=== PATIENT | male | born 1960 | race Caucasian/White ===

== ENCOUNTER → 2016-05-05 | Outpatient (CLI) | payer OTHER ==
--- NOTE | 2016-05-05 19:12 | MR ---
EXAMINATION TYPE: MR cervical spine wo con DATE OF EXAM: 05/05/2016 7:00 PM COMPARISON: NONE HISTORY: neck pain for 3 months, steroid injection 2 weeks ago TECHNIQUE: Multiplanar, multisequence images of the cervical spine were acquired. C2-C3: No evidence for degenerative disc disease. No disc bulge/herniation or protrusion. No Canal stenosis. Facet arthropathy noted. Uncovertebral joint hypertrophy greater on the left seen. Mild l eft foraminal encroachment. C3-C4: Severe degenerative disc disease with broad-based disc protrusion capped by spur greater parac entrally to the left. There is compression of the spinal cord and severe canal stenosis. Findings sli ghtly greater paracentrally the left. Uncovertebral joint hypertrophy and facet arthropathy contribut e to significant bilateral foraminal encroachment. C4-C5: Small central disc protrusion with moderate effacement of thecal sac. Encroaches upon the ante rior margin the spinal cord. There is facet arthropathy and uncovertebral joint hypertrophy bilateral ly with bilateral mild foraminal encroachment. C5-C6: Severe degenerative disc disease. Uncovertebral joint hypertrophy and facet arthropathy contri bute to mild to moderate bilateral foraminal encroachment. C6-C7: A mild broad-based central disc bulging but no canal stenosis or focal herniation. Neural fora barrie patent. C7-T1: No evidence for degenerative disc disease. No disc bulge/herniation or protrusion. No Canal stenosis. Foramina are patent bilaterally. Cervical segments are intact. There is loss the normal cervical lordosis. There is abnormal signal w ithin the visualized cervical spinal cord with the most marked changes seen at levels C3-C4. Cranioce rvical junction maintained. IMPRESSION: 1. Broad-based disc bulging or protrusion greater paracentrally the left C3-C4 results in severe connie l stenosis and spinal cord compression. Bilateral foraminal encroachment seen. 2. Assessment spinal cord is limited due to artifact. There does appear to be abnormal signal at the C3-C4 level suggestive of myelomalacia or compressive myelitis. Small syrinx felt less likely. 3. Small central disc protrusion C4-C5 with moderate effacement of thecal sac. No spinal cord contact . Neural foramina are narrowed secondary to facet arthropathy and uncovertebral joint hypertrophy. 4. Moderate degenerative disc disease C3-C4 and C5-C6. Hypertrophic changes and disc bulging at C5-C6 result in moderate bilateral foraminal encroachment and mild effacement of thecal sac with no canal stenosis or focal herniation.
== END | disposition home or self-care (01) ==
LOC: RADMRIMAIN 18:35
PROVIDERS: ATTEND Psychiatry & Neurology Neurology
DX: M48.02 Spinal stenosis, cervical region (principal); M50.21 Other cervical disc displacement, high cervical region; M50.221 Other cervical disc displacement at C4-C5 level; M50.31 Other cervical disc degeneration, high cervical region; M50.322 Other cervical disc degeneration at C5-C6 level
CPT/HCPCS: 72141

== ENCOUNTER → 2016-06-01 | Outpatient (CLI) | payer OTHER ==
[2016-06-01 14:01] LABS: EKG EKG PERFORMED
[2016-06-01 14:27] LABS: Appearance,Urine Clear (Clear); Bilirubin,Urine Negative (Negative); Glucose,Urine (UA) 4+ (Negative); Ketones,Urine Negative (Negative); Leukocyte Esterase,Urine Negative (Negative); Nitrite,Urine Negative (Negative); Protein,Urine Negative (Negative); Specific Gravity,Urine 1.017 (1.001-1.035); UA Billing (MACRO vs. MICRO) CHEM; Urobilinogen,Urine <2.0 mg/dL (<2.0)
[2016-06-01 14:28] LABS: Basophils # (A) 0.1 k/uL (0-0.2); Basophils % (A) 1 %; CH 29.3; CHCM 32.9; Eosinophils # (A) 0.2 k/uL (0-0.7); Eosinophils % (A) 2 %; HCT 47.7 % (39.0-53.0); HGB 15.3 gm/dL (13.0-17.5); Luc # (Auto) 0.18; Luc % (Auto) 3; Lymphocytes # (A) 2.2 k/uL (1.0-4.8); Lymphocytes % (A) 31 %; MCH 28.7 pg (25.0-35.0); MCHC 32.2 g/dL (31.0-37.0); MCV 89.4 fL (80.0-100.0); Mean Platelet Volume 7.4; Monocytes # (A) 0.4 k/uL (0-1.0); Monocytes % (A) 6 %; Neutrophils # (A) 4.3 k/uL (1.3-7.7); Neutrophils % (A) 58 %; RBC 5.34 m/uL (4.30-5.90); RDW 13.3 % (11.5-15.5); WBC 7.3 k/uL (3.8-10.6); WBC (Perox) 7.25
[2016-06-01 14:41] LABS: Anion Gap 12 mmol/L; Blood Urea Nitrogen 23 mg/dL (9-20); Calcium 9.5 mg/dL (8.4-10.2); Carbon Dioxide 23 mmol/L (22-30); Chloride 103 mmol/L (98-107); Glucose 324 mg/dL (74-99); Non-African American GFR(MDRD) >60 (>60 ml/min/1.73 sqM); Potassium 5.5 mmol/L (3.5-5.1); Sodium 138 mmol/L (137-145)
[2016-06-01 14:42] LABS: Partial Thromboplastin Time 22.2 sec (22.0-30.0); Prothrombin Time 10.3 sec (9.0-12.0)
--- NOTE | 2016-06-01 14:43 | XR ---
EXAMINATION TYPE: XR chest 2V DATE OF EXAM: 06/01/2016 2:33 PM COMPARISON: 03/12/2015 HISTORY: Preop FINDINGS: The lungs are clear and there is no pneumothorax, pleural effusion, or focal pneumonia. Mild cardio megaly and postsurgical changes. Arthropathy of the shoulders. Mild hypertrophic change of the spine. IMPRESSION: 1. No acute process.
[2016-06-01 21:09] LABS: Hemoglobin A1C 10.4 % (4.2-6.1)
== END | disposition home or self-care (01) ==
LOC: LABWHC1 13:39
PROVIDERS: ATTEND Nurse Practitioner Family
DX: Z01.818 Encounter for other preprocedural examination (principal); M47.12 Other spondylosis with myelopathy, cervical region
CPT/HCPCS: 36415; 71020; 80048; 81003; 83036; 85025; 85610; 85730; 93005

== ENCOUNTER → 2017-01-08 | Outpatient (CLI) | payer OTHER ==
--- NOTE | 2017-01-08 16:01 | CT ---
EXAMINATION TYPE: CT cervical spine wo con DATE OF EXAM: 01/08/2017 COMPARISON: NONE HISTORY: Follow up cervical fusion CT DLP: 770.4 mGycm Automated exposure control for dose reduction was used. TECHNIQUE: CT scan of the cervical spine is obtained without contrast, axial images are obtained, sagittal and c oronal reformatted images are also reviewed. FINDINGS: Patient shows anterior cervical fusion and discectomy change at C3-C6. Intervertebral spacing materia l present. Spondylosis is present, posterior extension of endplates at C3-4 and C5-6 causing anterior mass effect on the thecal sac. C2-3 shows left-sided foraminal encroachment, no significant central stenosis. No disc herniation. C3-4 which is anterior mass effect on the thecal sac due to posterior extension of endplate disc comp blaze. On mild central stenosis is suspected. There is some mild bilateral foraminal encroachment due t o lateral extension endplate disc complex. C4-5: No significant foraminal encroachment on the right, minimal encroachment on the left. No signif icant central stenosis. C5-6: Foraminal encroachment is present bilaterally. Mild central stenosis due to posterior extension of endplate disc complex. C6-7: Within normal limits C7-T1: No significant abnormality Cervical vertebral bodies show preserved height and alignment. IMPRESSION: Degenerative disc disease, multilevel foraminal encroachment. Postop changes.
== END ==
LOC: RADCTMAIN 15:27
PROVIDERS: ATTEND Neurological Surgery
DX: M99.71 Connective tissue and disc stenosis of intervertebral foramina of cervical region (principal); M50.30 Other cervical disc degeneration, unspecified cervical region; Z98.890 Other specified postprocedural states
CPT/HCPCS: 72125

== ENCOUNTER → 2021-02-10 | Day surgery (SDC) | payer OTHER ==
[2021-02-08 15:57] VITALS: BMI 37.2
[~2021-02-10] MED LIST: LACTATED RINGERS 1,000 ML IV ONE; LACTATED RINGERS 1,000 ML IV SCH; PROPOFOL 10 MG/ML 20 ML VIAL IV ONE
[2021-02-10 07:20] VITALS: TEMP 98
[2021-02-10 08:24] VITALS: RESP 16
[2021-02-10 08:36] VITALS: BP 103/65; PULSE 64
--- NOTE | 2021-02-10 08:40 | P.GSHP ---
History of Present Illness H&P Date: 02/10/21 Chief Complaint: Constipation Is a 60-year-old male who presents today for colonoscopy constipation. Past Medical History Past Medical History: Heart Failure, Diabetes Mellitus, Hyperlipidemia, Hypertension, Myocardial Infarction ([place]), Osteoarthritis ([place]) Additional Past Medical History / Comment(s): covid June 2020 Last Myocardial Infarction Date:: 2004 History of Any Multi-Drug Resistant Organisms: None Reported Past Surgical History: Coronary Bypass/CABG, Heart Catheterization With Stent Additional Past Surgical History / Comment(s): BILATERAL CATARACTS WITH LENS IMPLANTS,CABG 3 vessel,,traumatic partial amputation repair Past Anesthesia/Blood Transfusion Reactions: No Reported Reaction Date of Last Stent Placement:: 2004 Smoking Status: Former smoker - Past Family History Mother Family Medical History: Cancer Additional Family Medical History / Comment(s): liver or kidney Father Family Medical History: Cancer Additional Family Medical History / Comment(s): lung Medications and Allergies Home Medications Medication Instructions Recorded Confirmed Type Aspirin 81 mg PO DAILY 06/08/14 02/08/21 History glipiZIDE [Glucotrol] 5 mg PO HS 06/08/14 02/08/21 History Fenofibrate [Tricor] 160 mg PO HS 03/12/15 02/08/21 History Atorvastatin [Lipitor] 40 mg PO HS 02/08/21 02/08/21 History Baclofen [Lioresal] 20 mg PO HS 02/08/21 02/08/21 History Dapagliflozin Propanediol [Farxiga] 10 mg PO QAM 02/08/21 02/08/21 History Famotidine 20 mg PO HS 02/08/21 02/08/21 History Furosemide [Lasix] 20 mg PO HS 02/08/21 02/08/21 History Furosemide [Lasix] 40 mg PO QAM 02/08/21 02/08/21 History HYDROcodone/APAP 10-325MG [[place] 1 tab PO Q6HR PRN 02/08/21 02/08/21 History 10-325] Insulin Glargine,Hum.rec.anlog 10 - 50 unit SQ HS PRN 02/08/21 02/08/21 History [Basaglar Kwikpen U-100] Metoprolol Succinate (ER) [Toprol 25 mg PO QAM 02/08/21 02/08/21 History Xl] Nitroglycerin Sl Tabs [Nitrostat] 0.4 mg SUBLINGUAL Q5M PRN 02/08/21 02/08/21 History PARoxetine [Paxil] 20 mg PO QAM 02/08/21 02/08/21 History Pioglitazone HCl 45 mg PO QAM 02/08/21 02/08/21 History Sacubitril/Valsartan [Entresto 49 1 each PO BID 02/08/21 02/08/21 History mg-51 mg Tablet] Spironolactone 50 mg PO QAM 02/08/21 02/08/21 History Tamsulosin HCl [Flomax] 0.4 mg PO BID 02/08/21 02/08/21 History metFORMIN HCL [Glucophage] 1,000 mg PO BID 02/08/21 02/08/21 History Allergies Allergy/AdvReac Type Severity Reaction Status Date / Time No Known Allergies Allergy Verified 02/08/21 15:39 Surgical - Exam Vital Signs Temp Pulse Resp BP Pulse Ox 98 F 88 18 142/85 98 02/10/21 07:19 02/10/21 07:19 02/10/21 07:19 02/10/21 07:19 02/10/21 07:19 - General well developed, well nourished, no distress - Eyes PERRL - ENT normal pinna - Neck no masses - Respiratory normal expansion - Cardiovascular Rhythm: regular - Abdomen Abdomen: soft, non tender Assessment and Plan Assessment: Constipation. We'll perform colonoscopy.
--- NOTE | 2021-02-10 08:41 | P.OP ---
Date of Procedure: 02/10/21 Preoperative Diagnosis: Constipation Postoperative Diagnosis: External hemorrhoids Procedure(s) Performed: Colonoscopy Anesthesia: MAC Surgeon: Dell Bray Pathology: none sent Condition: stable Disposition: PACU Description of Procedure: The patient's placed on the endoscopy table in the lateral position. He received IV sedation. Digital rectal exam was performed which revealed external hemorrhoids. The flexible colonoscope was then placed patient anus passed throughout the entire colon. Ileocecal valve visualized. The cecum, ascending and transverse colon appeared normal. The descending; appeared normal. Scope was brought back the rectum and this appeared normal. Scope withdrawn for patient.
== END | disposition home or self-care (01) ==
LOC: ORWHC2ENDO 06:49
PROVIDERS: ATTEND Surgery
DX: K64.4 Residual hemorrhoidal skin tags (principal); K59.00 Constipation, unspecified; I11.0 Hypertensive heart disease with heart failure; I50.9 Heart failure, unspecified; E11.9 Type 2 diabetes mellitus without complications; E78.5 Hyperlipidemia, unspecified; M19.90 Unspecified osteoarthritis, unspecified site; I25.2 Old myocardial infarction; Z95.5 Presence of coronary angioplasty implant and graft; Z95.1 Presence of aortocoronary bypass graft; Z98.42 Cataract extraction status, left eye; Z98.41 Cataract extraction status, right eye; Z96.1 Presence of intraocular lens; Z98.890 Other specified postprocedural states; Z87.891 Personal history of nicotine dependence; Z80.51 Family history of malignant neoplasm of kidney; Z80.0 Family history of malignant neoplasm of digestive organs; Z80.1 Family history of malignant neoplasm of trachea, bronchus and lung; Z79.84 Long term (current) use of oral hypoglycemic drugs; Z79.82 Long term (current) use of aspirin; Z79.899 Other long term (current) drug therapy
CPT/HCPCS: 45378; J2704

== ENCOUNTER 2022-09-13 11:59 | Emergency (ER) | payer OTHER ==
[2022-09-13 12:10] VITALS: TEMP 97.4
--- NOTE | 2022-09-13 13:40 | ED ---
SOB HPI - General Source: patient, RN notes reviewed Mode of arrival: ambulatory Limitations: no limitations <Jeffrey Jefferson - Last Filed: 09/13/22 13:39> - History of Present Illness MD Complaint: shortness of breath (Exertional) -: days(s) Severity scale (1-10): 0 Consistency: intermittent Improves With: nothing Worsens With: exertion Known History Of: congestive heart failure Associated Symptoms: denies other symptoms Treatments Prior to Arrival: none - Related Data Home Oxygen Therapy: No <Michele Lester - Last Filed: 09/18/22 06:07> - General Chief Complaint: Shortness of Breath Stated Complaint: sob Time Seen by Provider: 09/13/22 13:39 - History of Present Illness Initial Comments: 61-year-old male presents emergency Department with chief complaint of shortness breath. Patient's been having increasing shortness but the last 2 days. Patient has had extensive cardiac history, CHF. He states he took an extra Lasix last night. Denies any leg swelling. Denies any cold-like symptoms. Does have slight cough which is more chronic (Jeffrey Jefferson) This patient is 61-year-old man who states that his real complaint is that over the past few days he notes that when he walks up a hill caring his fishing equipment he feels short of breath at the top. The patient has history of CAD/CHF and was concerned he may be going into congestive heart failure. He has not noticed orthopnea or edema. No cough or sputum. No chest pain. No change in urination. The patient's 1 further questioned does state that he has been more sedentary over the winter than his usual. The patient states she is pretty good about following with cardiology and did have a stress test maybe about a year ago. He did have echocardiogram he believes maybe about 6 months ago. (Michele Lester) - Related Data Home Medications Medication Instructions Recorded Confirmed Aspirin 81 mg PO DAILY 06/08/14 02/08/21 glipiZIDE [Glucotrol] 5 mg PO HS 06/08/14 02/08/21 Fenofibrate [Tricor] 160 mg PO HS 03/12/15 02/08/21 Atorvastatin [Lipitor] 40 mg PO HS 02/08/21 02/08/21 Baclofen [Lioresal] 20 mg PO HS 02/08/21 02/08/21 Dapagliflozin Propanediol [Farxiga] 10 mg PO QAM 02/08/21 02/08/21 Famotidine 20 mg PO HS 02/08/21 02/08/21 Furosemide [Lasix] 20 mg PO HS 02/08/21 02/08/21 Furosemide [Lasix] 40 mg PO QAM 02/08/21 02/08/21 HYDROcodone/APAP 10-325MG [[place] 1 tab PO Q6HR PRN 02/08/21 02/08/21 10-325] Insulin Glargine,Hum.rec.anlog 10 - 50 unit SQ HS PRN 02/08/21 02/08/21 [Basaglar Kwikpen U-100] Metoprolol Succinate (ER) [Toprol 25 mg PO QAM 02/08/21 02/08/21 Xl] Nitroglycerin Sl Tabs [Nitrostat] 0.4 mg SUBLINGUAL Q5M PRN 02/08/21 02/08/21 PARoxetine [Paxil] 20 mg PO QAM 02/08/21 02/08/21 Pioglitazone HCl 45 mg PO QAM 02/08/21 02/08/21 Sacubitril/Valsartan [Entresto 49 1 each PO BID 02/08/21 02/08/21 mg-51 mg Tablet] Spironolactone 50 mg PO QAM 02/08/21 02/08/21 Tamsulosin HCl [Flomax] 0.4 mg PO BID 02/08/21 02/08/21 metFORMIN HCL [Glucophage] 1,000 mg PO BID 02/08/21 02/08/21 Allergies Allergy/AdvReac Type Severity Reaction Status Date / Time No Known Allergies Allergy Verified 09/13/22 12:10 Review of Systems ROS Other: All systems not noted in ROS Statement are negative. <Jeffrey Jefferson - Last Filed: 09/13/22 13:39> ROS Other: All systems not noted in ROS Statement are negative. Constitutional: Denies: fever, chills Respiratory: Denies: cough, dyspnea, wheezes Cardiovascular: Reports: dyspnea on exertion. Denies: chest pain, palpitations, orthopnea, edema Gastrointestinal: Denies: abdominal pain, vomiting, diarrhea, melena, hematochezia Genitourinary: Denies: dysuria, hematuria Musculoskeletal: Denies: back pain Skin: Denies: rash Neurological: Denies: headache, weakness <Michele Lester - Last Filed: 09/18/22 06:07> ROS Statement: Those systems with pertinent positive or pertinent negative responses have been documented in the HPI. Past Medical History Past Medical History: Heart Failure, Diabetes Mellitus, Hyperlipidemia, Hypertension, Myocardial Infarction ([place]), Osteoarthritis ([place]) Additional Past Medical History / Comment(s): covid June 2020 Last Myocardial Infarction Date:: 2004 History of Any Multi-Drug Resistant Organisms: None Reported Past Surgical History: Coronary Bypass/CABG, Heart Catheterization With Stent Additional Past Surgical History / Comment(s): BILATERAL CATARACTS WITH LENS IMPLANTS,CABG 3 vessel,,traumatic partial amputation repair Past Anesthesia/Blood Transfusion Reactions: No Reported Reaction Date of Last Stent Placement:: 2004 Past Psychological History: Panic Disorder Smoking Status: Former smoker Past Alcohol Use History: None Reported Past Drug Use History: None Reported - Past Family History Mother Family Medical History: Cancer Additional Family Medical History / Comment(s): liver or kidney Father Family Medical History: Cancer Additional Family Medical History / Comment(s): lung <Jeffrey Jefferson - Last Filed: 09/13/22 13:39> General Exam Limitations: no limitations <Jeffrey Jefferson - Last Filed: 09/13/22 13:39> Limitations: no limitations General appearance: alert, in no apparent distress Head exam: Present: atraumatic, normocephalic Eye exam: Present: normal appearance. Absent: scleral icterus, conjunctival injection Neck exam: Present: normal inspection Respiratory exam: Present: normal lung sounds bilaterally. Absent: respiratory distress, wheezes, rales, rhonchi, stridor, accessory muscle use, decreased breath sounds Cardiovascular Exam: Present: normal rhythm, bradycardia, normal heart sounds. Absent: systolic murmur, diastolic murmur, rubs, gallop GI/Abdominal exam: Present: soft. Absent: distended, tenderness, guarding, rebound, rigid, mass Extremities exam: Present: normal inspection, normal capillary refill. Absent: pedal edema, calf tenderness Back exam: Present: normal inspection Neurological exam: Present: alert Skin exam: Present: warm, dry, intact, normal color. Absent: rash <Michele Lester - Last Filed: 09/18/22 06:07> - General Exam Comments Initial Comments: Visual Physical Exam Vital signs reviewed General: Well-appearing, nontoxic, no acute distress. Head: Normocephalic, atraumatic Eyes: PERRLA, EOMI ENT: Airway patent Chest: Nonlabored breathing Skin: No visual rash, normal skin tone Neuro: Alert and oriented 3 Musculoskeletal: No gross abnormalities (Ronny,Jeffrey M) Course Vital Signs 09/13/22 09/13/22 12:07 18:06 Temperature 97.4 F L Pulse Rate 59 L 79 Respiratory 22 18 Rate Blood Pressure 107/67 120/85 O2 Sat by Pulse 95 97 Oximetry Medical Decision Making - Lab Data Result diagrams: 09/13/22 14:40 09/13/22 14:40 - EKG Data -: EKG Interpreted by Me EKG shows normal: sinus rhythm (With occasional PVC), axis (Normal), QRS complexes (Old inferior [place]) Rate: normal (Rate 87 bpm) <Michele Lester - Last Filed: 09/18/22 06:07> - Medical Decision Making Patient is 61-year-old man here for some exertional dyspnea. The patient is not having this acute chest pain, nor any exertional chest pain or dyspnea at rest. There is no orthopnea. When I entered the room he was lying flat comfortably. After more in depth discussion it does appear that this probably represents some deconditioning, but given the patient's cardiac history believe he should follow with cardiology to see about new stress test/echocardiogram. We discussed appropriate further care and follow-up as well as return parameters. The patient did have chest x-ray which I interpreted as showing no acute inf iltrate or pneumothorax. Was pt. sent in by a medical professional or institution (, PA, OTOLOGIST, urgent care, hospital, or [facility]...) When possible be specific @ -[No] Did you speak to anyone other than the patient for history (EMS, parent, family, police, friend...)? What history was obtained from this source @ -[No] Did you review nursing and triage notes (agree or disagree)? Why? @ -[I reviewed and agree with nursing and triage notes] Were old charts reviewed (outside hosp., previous admission, EMS record, old EKG, old radiological studies, urgent care reports/EKG's, [facility] records)? Report findings @ -[No old charts were reviewed] Differential Diagnosis (chest pain, altered mental status, abdominal pain women, abdominal pain men, vaginal bleeding, weakness, fever, dyspnea, syncope, headache, dizziness, GI bleed, back pain, seizure, CVA, palpatations, mental health, musculoskeletal)? @ -[Differential Dyspnea: Coronary syndrome, arrhythmia, tamponade, asthma, COPD, pulmonary embolism, pneumonia, pneumothorax, pulmonary effusion, anaphylaxis, diabetic ketoacidosis, flailed chest, pulmonary contusion, diaphragmatic rupture, anemia, neuromuscular, this is not meant to be an all-inclusive list. EKG interpreted by me (3pts min.). @ -[As above] X-rays interpreted by me (1pt min.). @ -[As above CT interpreted by me (1pt min.). @ -[None done] U/S interpreted by me (1pt. min.). @ -[None done] What testing was considered but not performed or refused? (CT, X-rays, U/S, labs)? Why? @ -[None] What meds were considered but not given or refused? Why? @ -[None] Did you discuss the management of the patient with other professionals (professionals i.e. , PA, OTOLOGIST, lab, RT, psych nurse, social service coordinator, vocational trainer, teacher, sewage reticulation drafting officer, case sealer)? Give summary @ -[No] Was smoking cessation discussed for >3mins.? @ -[No] Was critical care preformed (if so, how long)? @ -[No] Were there social determinants of health that impacted care today? How? (Homelessness, low income, unemployed, alcoholism, drug addiction, transportation, low edu. Level, literacy, decrease access to med. care, custodial, rehab)? @ -[No] Was there de-escalation of care discussed even if they declined (Discuss DNR or withdrawal of care, Hospice)? DNR status @ -[No] What co-morbidities impacted this encounter? (DM, HTN, Smoking, COPD, CAD, Cancer, CVA, ARF, Chemo, Hep., AIDS, mental health diagnosis, sleep apnea, morbid obesity)? @ -[None] Was patient admitted / discharged? Hospital course, mention meds given and route, prescriptions, significant lab abnormalities, going to OR and other pertinent info. @ -[We discussed admission to have cardiology consultation, but the patient would like to go home and follow up as outpatient Undiagnosed new problem with uncertain prognosis? @ -[No] Drug Therapy requiring intensive monitoring for toxicity (Heparin, Nitro, Insulin, Cardizem)? @ -[No] Were any procedures done? @ -[No] Diagnosis/symptom? @ -[Acute exertional dyspnea Acute, or Chronic, or Acute on Chronic? @ -[default] Uncomplicated (without systemic symptoms) or Complicated (systemic symptoms)? @ -[Uncomplicated Side effects of treatment? @ -[No] Exacerbation, Progression, or Severe Exacerbation? @ -[No] Poses a threat to life or bodily function? How? (Chest pain, [place], [place], pneumonia, PE, COPD, DKA, ARF, appy, cholecystitis, CVA, Diverticulitis, Homicidal, Suicidal, threat to staff... and all critical care pts) @ -[Uncertain at this time (Michele Lester) - Lab Data Lab Results 09/13/22 09/13/22 09/13/22 Range/Units 14:40 14:40 14:40 WBC 6.2 (3.8-10.6) k/uL RBC 4.74 (4.30-5.90) m/uL Hgb 14.4 (13.0-17.5) gm/dL Hct 43.8 (39.0-53.0) % MCV 92.4 (80.0-100.0) fL MCH 30.4 (25.0-35.0) pg MCHC 32.9 (31.0-37.0) g/dL RDW 13.5 (11.5-15.5) % Plt Count 258 (150-450) k/uL MPV 7.5 Neutrophils % 61 % Lymphocytes % 30 % Monocytes % 6 % Eosinophils % 2 % Basophils % 1 % Neutrophils # 3.8 (1.3-7.7) k/uL Lymphocytes # 1.9 (1.0-4.8) k/uL Monocytes # 0.4 (0-1.0) k/uL Eosinophils # 0.1 (0-0.7) k/uL Basophils # 0.0 (0-0.2) k/uL Sodium 139 (137-145) mmol/L Potassium 4.3 (3.5-5.1) mmol/L Chloride 102 (98-107) mmol/L Carbon Dioxide 23 (22-30) mmol/L Anion Gap 14 mmol/L BUN 20 (9-20) mg/dL Creatinine 1.11 (0.66-1.25) mg/dL Est GFR (CKD-EPI)AfAm 83 (>60 ml/min/1.73 sqM) Est GFR (CKD-EPI)NonAf 72 (>60 ml/min/1.73 sqM) Glucose 194 H (74-99) mg/dL Calcium 9.2 (8.4-10.2) mg/dL Magnesium 1.9 (1.6-2.3) mg/dL Total Bilirubin 0.4 (0.2-1.3) mg/dL AST 25 (17-59) U/L ALT 30 (4-49) U/L Alkaline Phosphatase 54 (38-126) U/L Troponin I <0.012 (0.000-0.034) ng/mL NT-Pro-B Natriuret Pep pg/mL Total Protein 6.8 (6.3-8.2) g/dL Albumin 4.3 (3.5-5.0) g/dL 09/13/22 Range/Units 14:40 WBC (3.8-10.6) k/uL RBC (4.30-5.90) m/uL Hgb (13.0-17.5) gm/dL Hct (39.0-53.0) % MCV (80.0-100.0) fL MCH (25.0-35.0) pg MCHC (31.0-37.0) g/dL RDW (11.5-15.5) % Plt Count (150-450) k/uL MPV Neutrophils % % Lymphocytes % % Monocytes % % Eosinophils % % Basophils % % Neutrophils # (1.3-7.7) k/uL Lymphocytes # (1.0-4.8) k/uL Monocytes # (0-1.0) k/uL Eosinophils # (0-0.7) k/uL Basophils # (0-0.2) k/uL Sodium (137-145) mmol/L Potassium (3.5-5.1) mmol/L Chloride (98-107) mmol/L Carbon Dioxide (22-30) mmol/L Anion Gap mmol/L BUN (9-20) mg/dL Creatinine (0.66-1.25) mg/dL Est GFR (CKD-EPI)AfAm (>60 ml/min/1.73 sqM) Est GFR (CKD-EPI)NonAf (>60 ml/min/1.73 sqM) Glucose (74-99) mg/dL Calcium (8.4-10.2) mg/dL Magnesium (1.6-2.3) mg/dL Total Bilirubin (0.2-1.3) mg/dL AST (17-59) U/L ALT (4-49) U/L Alkaline Phosphatase (38-126) U/L Troponin I (0.000-0.034) ng/mL NT-Pro-B Natriuret Pep 334 pg/mL Total Protein (6.3-8.2) g/dL Albumin (3.5-5.0) g/dL Disposition <Jeffrey Jefferson - Last Filed: 09/13/22 13:39> Is patient prescribed a controlled substance at d/c from ED?: No <Michele Lester - Last Filed: 09/18/22 06:07> Clinical Impression: Exertional dyspnea, Hyperglycemia Disposition: HOME SELF-CARE Condition: Good Instructions (If sedation given, give patient instructions): Dyspnea (ED), Diabetic Hyperglycemia (ED) Additional Instructions: As we discussed, follow-up with the insurance auditor to see if they believe a stress test is needed. Referrals: Nico Ahuja MD [Primary Care Provider] - 1-2 days
--- NOTE | 2022-09-13 14:07 | XR ---
EXAMINATION TYPE: XR chest 2V DATE OF EXAM: 09/13/2022 1:49 PM COMPARISON: Chest radiographs from 06/01/2016 TECHNIQUE: XR chest 2V Frontal and lateral views of the chest. CLINICAL INDICATION:Male, 61 years old with history of sob; FINDINGS: Lungs/Pleura: There is no evidence of pleural effusion, focal consolidation, or pneumothorax. Pulmonary vascularity: Unremarkable. Heart/mediastinum: Cardiomediastinal silhouette is unremarkable. Musculoskeletal: No acute osseous pathology. There is fixation hardware in the lower cervical spine. Midline sternotomy wires are noted. IMPRESSION: No acute cardiopulmonary disease/process.
[2022-09-13 15:03] LABS: Basophils % (A) 1 %; Eosinophils # (A) 0.1 k/uL (0-0.7); Eosinophils % (A) 2 %; HCT 43.8 % (39.0-53.0); HGB 14.4 gm/dL (13.0-17.5); Lymphocytes # (A) 1.9 k/uL (1.0-4.8); Lymphocytes % (A) 30 %; MCH 30.4 pg (25.0-35.0); MCHC 32.9 g/dL (31.0-37.0); MCV 92.4 fL (80.0-100.0); Mean Platelet Volume 7.5; Monocytes # (A) 0.4 k/uL (0-1.0); Monocytes % (A) 6 %; Neutrophils # (A) 3.8 k/uL (1.3-7.7); Neutrophils % (A) 61 %; Platelet Count 258 k/uL (150-450); RBC 4.74 m/uL (4.30-5.90); RDW 13.5 % (11.5-15.5); WBC 6.2 k/uL (3.8-10.6)
[2022-09-13 15:25] LABS: Albumin 4.3 g/dL (3.5-5.0); Calcium 9.2 mg/dL (8.4-10.2); Magnesium 1.9 mg/dL (1.6-2.3); Potassium 4.3 mmol/L (3.5-5.1); Total Bilirubin 0.4 mg/dL (0.2-1.3); Total Protein 6.8 g/dL (6.3-8.2)
[2022-09-13 18:07] VITALS: BP 120/85; PULSE 79; RESP 18
== END 2022-09-13 18:32 | disposition home or self-care (01) ==
LOC: EC 11:59
DX: E11.65 Type 2 diabetes mellitus with hyperglycemia (principal); R06.09 Other forms of dyspnea; E11.36 Type 2 diabetes mellitus with diabetic cataract; I11.0 Hypertensive heart disease with heart failure; I50.9 Heart failure, unspecified; I25.2 Old myocardial infarction; E78.5 Hyperlipidemia, unspecified; M19.90 Unspecified osteoarthritis, unspecified site; Z79.4 Long term (current) use of insulin; Z79.82 Long term (current) use of aspirin; Z79.84 Long term (current) use of oral hypoglycemic drugs; Z79.899 Other long term (current) drug therapy; Z87.891 Personal history of nicotine dependence; Z95.1 Presence of aortocoronary bypass graft; Z86.16 Personal history of COVID-19
CPT/HCPCS: 36415; 71046; 80053; 83735; 83880; 84484; 85025; 93005; 99285

== ENCOUNTER → 2023-11-28 | Outpatient (CLI) | payer OTHER ==
[2023-11-28 14:22] VITALS: BP 102/59; PULSE 103; RESP 16
--- NOTE | 2023-11-28 14:49 | P.PAINPG ---
PQRS Measure Charge Sheet Comment: HISTORY OF PRESENT ILLNESS: A 63 yr old male as a referral from Dr Ahuja presents today w severe and chronic secondary to DDD, spondylosis and facet arthropathy without myelopathy for evaluation. Pt states pain level is provoked at 6 /10 in intensity, constant, localized in the lumbar spine, predominantly axial, achy in character w occasional shooting pain towards the calves. Pain is provoked by bending/ lifting. Pain is alleviated by physician guided home exercises five times weekly since August 2023, ice, medications ([place], Baclofen, Ibu), repositioning and rest . Oswestry axial pain score at 26. PMH: OA, CHF, DM II, Hyperlipidemia, HTN, MD (2004), BPH, MDD PSH: CABG x3, Cardiac Catherterization w Stent (2004), Cervical Surgery, BL Cataract Extraction w Lens Implants, Partial Traumatic Amputation Repair SH: Former tobacco user, Occasional ETOH use, No illicit drug use FH: Fa- Lung CA. Mo- Liver CA All: See list Meds: See list REVIEW OF ORGAN SYSTEMS: CONSTITUTIONAL: No fevers or chills. No recent weight loss. NEUROLOGICAL: + numbness and tingling along the distal extremities. No seizure disorders or headaches. MUSCULOSKELETAL: + pain PSYCHIATRIC: Denies current depression or suicidal thoughts. Physical Examinations : Constitutional : Cooperative , not in acute distress . Neurologic : Cranial nerve II to XII intact. No focal neurological deficits. Psychiatric : alert & oriented x 3. Matching mood & appropriate affect. Judgment & insight intact. Musculoskeletal : Cervical Spine Motor strength in the deltoid and biceps: Normal right side. Normal Left side Motor strength biceps and the wrist extensors: Normal right side . Normal left side Motor strength in the triceps muscle: Normal right side. Normal left side Deep tendon reflexes: Normal at the biceps. Normal at Brachioradialis. Normal at triceps Vertebral body tenderness to deep palpation over Cervical facet loading test: positive bilaterally Spurling test: positive bilaterally Neck distraction test: positive bilaterally Lloyd sign: positive bilaterally Lumbar spine Motor strength lower extremities ,thigh and legs 5/5 Right side , 5/5 Left side Deep tendon reflexes : Normal Knee Jerk. Normal Ankle Jerk Vertebral body tenderness over L5 Corea Test positive BL L5-S1 Lumbar facet Loading Test: positive Right / positive Left Range of motion of the lumbar spine Flexion 30 degrees, extension 10 degrees Straight Leg Raise test: Left/ Right positive at degrees Marj test: positive right / positive left. Severe tenderness over the Sacroiliac joint on the Right / Left sides Gaenslen test: positive bilaterally Seated flexion test: positive bilaterally. Sacral spine : Severe tenderness over the Sacroiliac joint: right side / left side Range of motion: Flexion of the lumbar spine <60 degrees Range of motion: Extension of the lumbar spine <20 degrees Gaenslen's Test positive Marj test: positive right side / left side Thigh Thrust Test Sacral Thrust Test Imaging: CT non contrast of the lumbar spine from 11/16/23 reviewed Assessment/ Plan : Lumbar radiculopathy Recommendation of AARTI L5-S1 #1. Risks, benefits of procedure discussed and patient verbalized understanding. Admits to anti- coagulant use or medical history of diabetes. Protocol for discontinuation/ continuation of medications p luis fernando procedure discussed. All questions answered. I have spent greater than 30 minutes on patient care today. Dr Johnson was available by phone for the evaluation of this patient. The time was used to review the medical records including relevant urine studies and Prescription history (MAPs), review of the available imaging, evaluation and examination of the patient, coordination of care with the medical staff and if applicable referring physicians, as well as creation of the medical record PQRS Narrative: Smoking Status Former smoker Home Medications: Ambulatory Orders Aspirin 81 mg PO DAILY 06/08/14 glipiZIDE [Glucotrol] 5 mg PO HS 06/08/14 Fenofibrate [Tricor] 160 mg PO HS 03/12/15 Atorvastatin [Lipitor] 40 mg PO HS 02/08/21 Baclofen [Lioresal] 20 mg PO HS 02/08/21 Dapagliflozin Propanediol [Farxiga] 10 mg PO QAM 02/08/21 Famotidine 20 mg PO HS 02/08/21 Furosemide [Lasix] 20 mg PO HS 02/08/21 Furosemide [Lasix] 40 mg PO QAM 02/08/21 HYDROcodone/APAP 10-325MG [[place] 10-325] 1 tab PO Q6HR PRN 02/08/21 Insulin Glargine,Hum.rec.anlog [Basaglar Kwikpen U-100] 10 - 50 unit SQ HS PRN 02/08/21 Metoprolol Succinate (ER) [Toprol Xl] 25 mg PO QAM 02/08/21 Nitroglycerin Sl Tabs [Nitrostat] 0.4 mg SUBLINGUAL Q5M PRN 02/08/21 PARoxetine [Paxil] 20 mg PO QAM 02/08/21 Pioglitazone HCl 45 mg PO QAM 02/08/21 Sacubitril/Valsartan [Entresto 49 mg-51 mg Tablet] 1 each PO BID 02/08/21 Spironolactone 50 mg PO QAM 02/08/21 Tamsulosin HCl [Flomax] 0.4 mg PO BID 02/08/21 metFORMIN HCL [Glucophage] 1,000 mg PO BID 02/08/21 diazePAM [Valium] 5 mg PO DAILY PRN 1 Days #2 tab 11/28/23 Controlled Substance Measures - Controlled Substance Measures Is patient prescribed a controlled substance at discharge?: Yes When asked, does pt state using other controlled substances?: Yes If prescribed controlled substance>3 days was MAPS reviewed?: Prescribed <3 Days
== END ==
LOC: PNWHC3 13:38
PROVIDERS: ATTEND Specialist
DX: M51.17 Intervertebral disc disorders with radiculopathy, lumbosacral region (principal); G62.9 Polyneuropathy, unspecified; Z87.891 Personal history of nicotine dependence
CPT/HCPCS: 99211

== ENCOUNTER 2023-12-14 12:55 | Day surgery (SDC) | payer OTHER ==
[2023-12-14] MEDS ORDERED: methylPREDNISolone ACETATE 40 MG/ML 1 ML VIAL ONE (13:49)
[2023-12-14] MEDS ORDERED: IOPAMIDOL M200 10 ML VIAL ONE (13:49)
--- NOTE | 2024-01-29 18:21 | FL ---
EXAMINATION TYPE: FL guided pain mgmt statistic DATE OF EXAM: 01/01/2024 5:03 PM COMPARISON: Pre Operative Images if available both CT/MRI or plain film CLINICAL INDICATION: Male, 63 years old with history of LESI; TECHNIQUE: FL guided pain mgmt statistic, multiple fluoroscopic images provided for procedure. Total fluoroscopy time: 7.8 seconds Total submitted images to PACS: 1 DAP: 0.0592 mGym2 Gycm2 uGym2 cGycm2 or equivalent. FINDINGS: Fluoroscopic images during injection for pain management demonstrate multilevel degeneration changes throughout the spine. No evidence for fracture. No acute process identified. IMPRESSION: 1. No evidence for intraoperative complication. 2. Please see the operative/procedural note for further details. [facility], , 01/29/2024 6:18 PM
== END 2023-12-14 14:40 ==
LOC: ORPAIN 12:55
PROVIDERS: ATTEND Specialist
DX: M47.26 Other spondylosis with radiculopathy, lumbar region (principal); E11.9 Type 2 diabetes mellitus without complications; Z79.82 Long term (current) use of aspirin
CPT/HCPCS: 62323

== ENCOUNTER → 2024-01-03 | Outpatient (CLI) | payer OTHER ==
[2024-01-03 14:10] VITALS: BP 100/70; PULSE 71; RESP 16
--- NOTE | 2024-01-03 14:18 | P.PAINPG ---
PQRS Measure Charge Sheet Comment: HISTORY OF PRESENT ILLNESS: A 63 yr old male presents today w severe and chronic secondary to DDD, spondylosis and facet arthropathy without myelopathy for evaluation s/p AARTI L5- S1 #1. Pt states he experienced 90 % pain relief x 3 wks s/p procedure. Pt states pain level is provoked at 6 /10 in intensity, constant, localized in the L lumbar spine, predominantly axial, achy in character w occasional shooting pain towards the L toes. Pain is provoked by bending/ lifting. Pain is alleviated by physician guided home exercises five times weekly since August 2023, ice, medications, repositioning and rest . Interventional procedures include AARTI L5-S1 x1 Medications include [place], Baclofen, Ibu REVIEW OF ORGAN SYSTEMS: CONSTITUTIONAL: No fevers or chills. No recent weight loss. NEUROLOGICAL: + numbness and tingling along the distal extremities. No seizure disorders or headaches. MUSCULOSKELETAL: + pain PSYCHIATRIC: Denies current depression or suicidal thoughts. Physical Examinations : Constitutional : Cooperative , not in acute distress . Neurologic : Cranial nerve II to XII intact. No focal neurological deficits. Psychiatric : alert & oriented x 3. Matching mood & appropriate affect. Judgment & insight intact. Musculoskeletal : Cervical Spine Motor strength in the deltoid and biceps: Normal right side. Normal Left side Motor strength biceps and the wrist extensors: Normal right side . Normal left side Motor strength in the triceps muscle: Normal right side. Normal left side Deep tendon reflexes: Normal at the biceps. Normal at Brachioradialis. Normal at triceps Vertebral body tenderness to deep palpation over Cervical facet loading test: positive bilaterally Spurling test: positive bilaterally Neck distraction test: positive bilaterally Lloyd sign: positive bilaterally Lumbar spine Motor strength lower extremities ,thigh and legs 5/5 Right side , 5/5 Left side Deep tendon reflexes : Normal Knee Jerk. Normal Ankle Jerk Vertebral body tenderness over L5 Corea Test positive L L5-S1 Lumbar facet Loading Test: positive Right / positive Left Range of motion of the lumbar spine Flexion 30 degrees, extension 10 degrees Straight Leg Raise test: Left/ Right positive at degrees Marj test: positive right / positive left. Severe tenderness over the Sacroiliac joint on the Right / Left sides Gaenslen test: positive bilaterally Seated flexion test: positive bilaterally. Sacral spine : Severe tenderness over the Sacroiliac joint: right side / left side Range of motion: Flexion of the lumbar spine <60 degrees Range of motion: Extension of the lumbar spine <20 degrees Gaenslen's Test positive Marj test: positive right side / left side Thigh Thrust Test Sacral Thrust Test Imaging: CT non contrast of the lumbar spine from 11/16/23 reviewed Assessment/ Plan : Lumbar radiculopathy Recommendation of L TFESI L5-S1 #2. Risks, benefits of procedure discussed and patient verbalized understanding. Admits to anti- coagulant use or medical history of diabetes. Protocol for discontinuation/ continuation of medications placido procedure discussed. All questions answered. I have spent greater than 30 minutes on patient care today. Dr Johnson was available by phone for the evaluation of this patient. The time was used to review the medical records including relevant urine studies and Prescription history (MAPs), review of the available imaging, evaluation and examination of the patient, coordination of care with the medical staff and if applicable referring physicians, as well as creation of the medical record PQRS Narrative: Smoking Status Former smoker Hx Alcohol Use (MH) No Home Medications: Ambulatory Orders Aspirin 81 mg PO DAILY 06/08/14 glipiZIDE [Glucotrol] 5 mg PO HS 06/08/14 Fenofibrate [Tricor] 160 mg PO HS 03/12/15 Atorvastatin [Lipitor] 40 mg PO HS 02/08/21 Baclofen [Lioresal] 20 mg PO HS 02/08/21 Dapagliflozin Propanediol [Farxiga] 10 mg PO QAM 02/08/21 Famotidine 20 mg PO HS 02/08/21 Furosemide [Lasix] 20 mg PO HS 02/08/21 Furosemide [Lasix] 40 mg PO QAM 02/08/21 HYDROcodone/APAP 10-325MG [[place] 10-325] 1 tab PO Q6HR PRN 02/08/21 Insulin Glargine,Hum.rec.anlog [Basaglar Kwikpen U-100] 10 - 50 unit SQ HS PRN 02/08/21 Metoprolol Succinate (ER) [Toprol Xl] 25 mg PO QAM 02/08/21 Nitroglycerin Sl Tabs [Nitrostat] 0.4 mg SUBLINGUAL Q5M PRN 02/08/21 PARoxetine [Paxil] 20 mg PO QAM 02/08/21 Pioglitazone HCl 45 mg PO QAM 02/08/21 Sacubitril/Valsartan [Entresto 49 mg-51 mg Tablet] 1 each PO BID 02/08/21 Spironolactone 50 mg PO QAM 02/08/21 Tamsulosin HCl [Flomax] 0.4 mg PO BID 02/08/21 metFORMIN HCL [Glucophage] 1,000 mg PO BID 02/08/21 diazePAM [Valium] 5 mg PO DAILY PRN 1 Days #2 tab 11/28/23 Controlled Substance Measures - Controlled Substance Measures Is patient prescribed a controlled substance at discharge?: No
== END ==
LOC: PNWHC3 13:35
PROVIDERS: ATTEND Specialist
DX: M54.16 Radiculopathy, lumbar region
CPT/HCPCS: 99211

== ENCOUNTER 2024-01-31 12:44 | Day surgery (SDC) | payer OTHER ==
[~2024-01-31 12:44] MED LIST changes: -LACTATED RINGERS 1,000 ML IV ONE; -PROPOFOL 10 MG/ML 20 ML VIAL IV ONE
[2024-01-31 13:26] VITALS: TEMP 97.4
[2024-01-31 13:36] LABS: Glucose,Whole Blood 182 mg/dL (70-110)
[2024-01-31] MEDS ORDERED: DEXAMETHASONE SOD PHOSPHATE 10 MG/ML 1 ML VIAL ONE (14:15)
[2024-01-31] MEDS ORDERED: IOPAMIDOL M200 10 ML VIAL ONE (14:15)
--- NOTE | 2024-01-31 14:30 | P.PCN ---
Date of Procedure: 01/31/24 Description of Procedure: 1. Left side L5-S1 Epidural steroid injection under fluoroscopic guidance , 2. Lumbar epidurogram PREOPERATIVE DIAGNOSIS: Lumbar degenerative disc disease, and Lumbar radiculopathy. POSTOPERATIVE DIAGNOSIS: Lumbar degenerative disc disease, and Lumbar radiculopathy. SURGEON: Guerita Torres ANESTHESIA: Local with 1% lidocaine, and IV sedation : None EBL: None. Specimen removed: None Fluoroscopic image: saved to electronic medical records PROCEDURE INDICATION: The patient had history of Lumbar degenerative disc disease and Lumbar radiculopathy. Failed to conservative therapy. Presented for epidural steroid injection. PROCEDURE DESCRIPTION: The patient was seen and identified in the preoperative area. Risks, benefits, complications, and alternatives were discussed with the patient. The patient agreed to proceed with the procedure and signed the cons ent. IV was started, and vital signs were stable. Patient was taken to the OR and time out was completed. The patient was placed in the prone position on procedure table and a pillow was placed under the abdomen to reduce lumbar lordosis. The lumbosacral area was prepped with ChloraPrep 2 and draped in the usual sterile fashion. Critical pause was taken. Vital signs were closely monitored during the procedure. Using 20 degree ipsilateral oblique fluoroscopy, the chin of the Kiel dog of L5 was identified, and the skin and deeper tissues just below was localized with 1% lidocaine. 22-guage 5-inch spinal needles were used for the procedure. The needle was guided by fluoroscopy just underneath the chin of the Kiel dog of L5 . Under AP fluoroscopy, the needle was advanced to the 6 o'clock position of the L5 pedicle. After negative aspiration of CSF and blood and with no paresthesias, 1 mL of Isovue-200 contrast dye was injected with good anterior epidural spread and outlining of the L5 nerve root. After negative aspiration 3 mL of block solution injected . Block solution contained 10 mg of dexamethasone, with 2 mL of normal saline preservative-free. Needle was removed intact, skin was cleansed, and bandage was applied. COMPLICATIONS: None. DISPOSITION / PLANS: The patient was placed in a supine position and transferred to the recovery area in a stable condition for observation. Patient was discharged from the recovery room after meeting discharge criteria. Home discharge instructions given to the patient by the staff. The patient was reexamined prior to discharge. The patient will schedule a follow up in the clinic in 4 weeks.
[2024-01-31 14:33] VITALS: RESP 16
[2024-01-31 14:53] VITALS: BP 103/77; PULSE 88
--- NOTE | 2024-01-31 23:56 | FL ---
EXAMINATION TYPE: FL guided pain mgmt statistic DATE OF EXAM: 01/31/2024 2:40 PM COMPARISON: Pre Operative Images if available both CT/MRI or plain film CLINICAL INDICATION: Male, 63 years old with history of Transforaminal Inj; TECHNIQUE: FL guided pain mgmt statistic, multiple fluoroscopic images provided for procedure. Total fluoroscopy time: 14 seconds Total submitted images to PACS: 3 DAP: 0.93035 mGym2 Gycm2 uGym2 cGycm2 or equivalent. FINDINGS: Fluoroscopic images during injection for pain management demonstrate multilevel degeneration changes throughout the spine. No evidence for fracture. No acute process identified. IMPRESSION: 1. No evidence for intraoperative complication. 2. Please see the operative/procedural note for further details. [facility], , 01/31/2024 11:53 PM
== END 2024-01-31 15:06 | disposition home or self-care (01) ==
LOC: ORPAIN 12:44
DX: M54.16 Radiculopathy, lumbar region
CPT/HCPCS: 64483

== ENCOUNTER → 2024-02-20 | Outpatient (CLI) | payer OTHER ==
[2024-02-20 14:08] VITALS: BP 119/69; PULSE 95; RESP 16
--- NOTE | 2024-02-20 14:43 | P.PAINPG ---
PQRS Measure Charge Sheet Comment: HISTORY OF PRESENT ILLNESS: A 63 yr old male presents today w severe and chronic LBP > 6 mo secondary to radiculopathy, spondylosis and facet arthropathy without myelopathy for evaluation s/p L TFESI L5-S1 #1. Pt states he experienced 50 % pain relief x 3 wks s/p procedure. Pt states pain level is provoked at 7 /10 in intensity, constant, localized in the L lumbar spine, predominantly axial, achy in character w occasional shooting pain down the LLE. Pain is provoked w weight bearing activity. Pain is alleviated by physician guided home exercises five times weekly since August 2023, ice, medications, repositioning and rest . Interventional procedures include AARTI L5-S1 x1, L TFESI L5-S1 x1 Medications include [place], Baclofen, Ibu REVIEW OF ORGAN SYSTEMS: CONSTITUTIONAL: No fevers or chills. No recent weight loss. NEUROLOGICAL: + numbness and tingling along the distal extremities. No seizure disorders or headaches. MUSCULOSKELETAL: + pain PSYCHIATRIC: Denies current depression or suicidal thoughts. Physical Examinations : Constitutional : Cooperative , not in acute distress . Neurologic : Cranial nerve II to XII intact. No focal neurological deficits. Psychiatric : alert & oriented x 3. Matching mood & appropriate affect. Judgment & insight intact. Musculoskeletal : Cervical Spine Motor strength in the deltoid and biceps: Normal right side. Normal Left side Motor strength biceps and the wrist extensors: Normal right side . Normal left side Motor strength in the triceps muscle: Normal right side. Normal left side Deep tendon reflexes: Normal at the biceps. Normal at Brachioradialis. Normal at triceps Vertebral body tenderness to deep palpation over Cervical facet loading test: positive bilaterally Spurling test: positive bilaterally Neck distraction test: positive bilaterally Lloyd sign: positive bilaterally Lumbar spine Motor strength lower extremities ,thigh and legs 5/5 Right side , 5/5 Left side Deep tendon reflexes : Normal Knee Jerk. Normal Ankle Jerk Vertebral body tenderness over L5 Corea Test positive L L5-S1 Lumbar facet Loading Test: positive Right / positive Left Range of motion of the lumbar spine Flexion 30 degrees, extension 10 degrees Straight Leg Raise test: Left/ Right positive at degrees Marj test: positive right / positive left. Severe tenderness over the Sacroiliac joint on the Right / Left sides Gaenslen test: positive bilaterally Seated flexion test: positive bilaterally. Sacral spine : Severe tenderness over the Sacroiliac joint: right side / left side Range of motion: Flexion of the lumbar spine <60 degrees Range of motion: Extension of the lumbar spine <20 degrees Gaenslen's Test positive Marj test: positive right side / left side Thigh Thrust Test Sacral Thrust Test Imaging: CT non contrast of the lumbar spine from 11/16/23 reviewed Assessment/ Plan : Lumbar radiculopathy Recommendation of L TFESI L5-S1 #2. Risks, benefits of procedure discussed and patient verbalized understanding. Admits to anti- coagulant use or medical history of diabetes. Protocol for discontinuation/ continuation of medications placido procedure discussed. All questions answered. I have spent greater than 30 minutes on patient care today. Dr Johnson was available by phone for the evaluation of this patient. The time was used to review the medical records including relevant urine studies and Prescription history (MAPs), review of the available imaging, evaluation and examination of the patient, coordination of care with the medical staff and if applicable referring physicians, as well as creation of the medical record - Pain Location Lower Back Non-Pharmacological Interventions: Chiropractic Treatment Pharmacological Interventions: Epidural, Medication PQRS Narrative: Smoking Status Former smoker Hx Alcohol Use (MH) No Home Medications: Ambulatory Orders Aspirin 81 mg PO DAILY 06/08/14 glipiZIDE [Glucotrol] 5 mg PO HS 06/08/14 Fenofibrate [Tricor] 160 mg PO HS 03/12/15 Atorvastatin [Lipitor] 40 mg PO HS 02/08/21 Baclofen [Lioresal] 20 mg PO HS 02/08/21 Dapagliflozin Propanediol [Farxiga] 10 mg PO QAM 02/08/21 Famotidine 20 mg PO HS 02/08/21 Furosemide [Lasix] 20 mg PO QAM 02/08/21 HYDROcodone/APAP 10-325MG [[place] 10-325] 1 tab PO Q6HR PRN 02/08/21 Metoprolol Succinate (ER) [Toprol Xl] 25 mg PO QAM 02/08/21 Nitroglycerin Sl Tabs [Nitrostat] 0.4 mg SUBLINGUAL Q5M PRN 02/08/21 PARoxetine [Paxil] 20 mg PO QAM 02/08/21 Pioglitazone HCl 45 mg PO QAM 02/08/21 Sacubitril/Valsartan [Entresto 49 mg-51 mg Tablet] 1 each PO BID 02/08/21 Spironolactone 50 mg PO QAM 02/08/21 Tamsulosin HCl [Flomax] 0.4 mg PO BID 02/08/21 metFORMIN HCL [Glucophage] 1,000 mg PO BID 02/08/21 Dulaglutide [Trulicity] 3 mg SQ Q7D 01/28/24 Ibuprofen [Motrin] 800 mg PO Q8H PRN 01/28/24 diazePAM [Valium] 5 mg PO DAILY PRN 1 Days #2 tab 02/20/24 Controlled Substance Measures - Controlled Substance Measures Is patient prescribed a controlled substance at discharge?: Yes When asked, does pt state using other controlled substances?: Yes If prescribed controlled substance>3 days was MAPS reviewed?: Prescribed <3 Days
== END ==
LOC: PNWHC3 13:40
PROVIDERS: ATTEND Specialist
CPT/HCPCS: 99211

== ENCOUNTER 2024-03-07 08:32 | Day surgery (SDC) | payer OTHER ==
[2024-03-07 08:54] VITALS: RESP 16; TEMP 96.8
[2024-03-07 09:02] LABS: Glucose,Whole Blood 164 mg/dL (70-110)
[2024-03-07] MEDS ORDERED: DEXAMETHASONE SOD PHOSPHATE 10 MG/ML 1 ML VIAL ONE (09:59)
[2024-03-07] MEDS ORDERED: IOPAMIDOL M200 10 ML VIAL ONE (09:59)
--- NOTE | 2024-03-07 10:13 | P.PCN ---
Date of Procedure: 03/07/24 Surgeon: Darcy Mata Pathology: none sent Condition: stable Disposition: PACU Description of Procedure: Preoperative Diagnosis: lumbar radiculopathy Postoperative Diagnosis: Same as above Procedure(s) Performed: Transforaminal epidural steroid injection for level L5- S1 on the left side under fluoroscopic guidance Anesthesia: Local only with lidocaine 1% Surgeon: Darcy Mata Condition: stable Disposition: PACU Description of Procedure: . The patient was seen and identified in the preoperative area. Risks, benefits, complications, and alternatives were discussed with the patient. The patient agreed to proceed with the procedure and signed the consent. IV was started, and vital signs were stable. Patient was taken to the OR and time out was completed. The patient was placed in the prone position on procedure table and a pillow was placed under the abdomen to reduce lumbar lordosis. The lumbosacral area was prepped and draped in the usual sterile fashion. Critical pause was taken. Vital signs were closely monitored during the procedure. Conscious sedation was used during the procedure to decrease patients anxiety. Lidocaine 1% was used to numb the skin up at the target points that were chosen as follows: For the L5-S1 level the target point was at the 6 o'clock position of L-5 pedicle in the left oblique view. The correct view was obtained by squaring off the L5 vertebra on the AP view of fluoroscopy then the C-arm was tilted to the left oblique position to an angle at which the superior articular process of the lower vertebra would point to the middle of the pedicle above it at the 6 o'clock position as mentioned above . Then I used 5 inch 22-gauge Quincke spinal needle to get to the target point mentioned above by touching the inferior edge of the L4 pedicle and then walking off the bone and into the superior part of the L5-S1 foramen using the lateral view of fluoroscopy. I then injected 1 mL of Isovue contrast dye which showed typical epidurogram around the L5 nerve root and into the epidural space. Then I injected 1 mL of lidocaine 1% +10 mg of Decadron.. Patient tolerated procedure well,and was transferred to PACU in stable condition. A copy of the needle placement picture was saved to the fluoroscopy machine.
--- NOTE | 2024-03-07 10:25 | FL ---
EXAMINATION TYPE: FL guided pain mgmt statistic DATE OF EXAM: 03/07/2024 HISTORY: Fluoroscopy time Total dose area product (DAP) in uGy*m?, mGy*cm? (or similar): [id number] IMPRESSION: 1. Fluoroscopy time. [facility], , 03/07/2024 10:22 AM
[2024-03-07 10:31] VITALS: BP 118/73; PULSE 81
== END 2024-03-07 10:31 | disposition home or self-care (01) ==
LOC: ORPAIN 08:32
PROVIDERS: ATTEND Anesthesiology
DX: M54.16 Radiculopathy, lumbar region (principal); I10 Essential (primary) hypertension; Z79.82 Long term (current) use of aspirin; Z79.899 Other long term (current) drug therapy
CPT/HCPCS: 64483; J1100; Q9966

== ENCOUNTER → 2024-03-17 | Outpatient (CLI) | payer OTHER ==
[2024-03-17 13:12] VITALS: BP 123/85; PULSE 98; RESP 16; TEMP 97.1
--- NOTE | 2024-03-17 15:09 | P.PAINPG ---
PQRS Measure Charge Sheet Comment: HISTORY OF PRESENT ILLNESS: A 63 yr old male presents today w severe and chronic LBP > 6 mo secondary to radiculopathy, spondylosis and facet arthropathy without myelopathy for evaluation s/p L TFESI L5-S1 #2. Pt states he experienced 50 % pain relief x 2 wks s/p procedure. Pt states pain level is provoked at 7 /10 in intensity, constant, localized in the L lumbar spine, predominantly axial, achy in character w occasional shooting pain down the LLE. Pain is provoked w weight bearing activity. Pain is alleviated by physician guided home exercises five times weekly since August 2023, ice, medications, repositioning and rest . Interventional procedures include AARTI L5-S1 x1, L TFESI L5-S1 x2 Medications include [place], Baclofen, Ibu REVIEW OF ORGAN SYSTEMS: CONSTITUTIONAL: No fevers or chills. No recent weight loss. NEUROLOGICAL: + numbness and tingling along the distal extremities. No seizure disorders or headaches. MUSCULOSKELETAL: + pain PSYCHIATRIC: Denies current depression or suicidal thoughts. Physical Examinations : Constitutional : Cooperative , not in acute distress . Neurologic : Cranial nerve II to XII intact. No focal neurological deficits. Psychiatric : alert & oriented x 3. Matching mood & appropriate affect. Judgment & insight intact. Musculoskeletal : Cervical Spine Motor strength in the deltoid and biceps: Normal right side. Normal Left side Motor strength biceps and the wrist extensors: Normal right side . Normal left side Motor strength in the triceps muscle: Normal right side. Normal left side Deep tendon reflexes: Normal at the biceps. Normal at Brachioradialis. Normal at triceps Vertebral body tenderness to deep palpation over Cervical facet loading test: positive bilaterally Spurling test: positive bilaterally Neck distraction test: positive bilaterally Lloyd sign: positive bilaterally Lumbar spine Motor strength lower extremities ,thigh and legs 5/5 Right side , 5/5 Left side Deep tendon reflexes : Normal Knee Jerk. Normal Ankle Jerk Vertebral body tenderness over L5 Corea Test positive L L5-S1 Lumbar facet Loading Test: positive Right < positive Left L4-L5/ L5-S1 Range of motion of the lumbar spine Flexion 30 degrees, extension 10 degrees Straight Leg Raise test: Left/ Right positive at degrees Marj test: positive right / positive left. Severe tenderness over the Sacroiliac joint on the Right / Left sides Gaenslen test: positive bilaterally Seated flexion test: positive bilat erally. Sacral spine : Severe tenderness over the Sacroiliac joint: right side / left side Range of motion: Flexion of the lumbar spine <60 degrees Range of motion: Extension of the lumbar spine <20 degrees Gaenslen's Test positive Marj test: positive right side / left side Thigh Thrust Test Sacral Thrust Test Imaging: CT non contrast of the lumbar spine from 11/16/23 reviewed Assessment/ Plan : Lumbar radiculopathy Recommendation of BL MBB L4-L5/ L5-S1 #1. Risks, benefits of procedure discussed and patient verbalized understanding. Admits to anti- coagulant use or medical history of diabetes. Protocol for discontinuation/ continuation of medications placido procedure discussed. Minimal anesthesia including Fentanyl and Versed if clinically indicated. All questions answered. I have spent greater than 30 minutes on patient care today. Dr Johnson was available by phone for the evaluation of this patient. The time was used to review the medical records including relevant urine studies and Prescription history (MAPs), review of the available imaging, evaluation and examination of the patient, coordination of care with the medical staff and if applicable referring physicians, as well as creation of the medical record - Pain Location Left Lower Back Non-Pharmacological Interventions: Chiropractic Treatment, Heat, Ice, Inactivity, Massage, Position/Reposition, Relaxation Technique, Sitting Pharmacological Interventions: Epidural, PRN Medication, Scheduled Medication PQRS Narrative: Smoking Status Former smoker Hx Alcohol Use (MH) No Home Medications: Ambulatory Orders Aspirin 81 mg PO DAILY 06/08/14 glipiZIDE [Glucotrol] 5 mg PO HS 06/08/14 Fenofibrate [Tricor] 160 mg PO HS 03/12/15 Atorvastatin [Lipitor] 40 mg PO HS 02/08/21 Baclofen [Lioresal] 20 mg PO HS 02/08/21 Dapagliflozin Propanediol [Farxiga] 10 mg PO QAM 02/08/21 Famotidine 20 mg PO HS 02/08/21 Furosemide [Lasix] 20 mg PO QAM 02/08/21 HYDROcodone/APAP 10-325MG [[place] 10-325] 1 tab PO Q6HR PRN 02/08/21 Metoprolol Succinate (ER) [Toprol Xl] 25 mg PO QAM 02/08/21 Nitroglycerin Sl Tabs [Nitrostat] 0.4 mg SUBLINGUAL Q5M PRN 10/12/21 PARoxetine [Paxil] 20 mg PO QAM 02/08/21 Pioglitazone HCl 45 mg PO QAM 02/08/21 Sacubitril/Valsartan [Entresto 49 mg-51 mg Tablet] 1 each PO BID 02/08/21 Spironolactone 50 mg PO QAM 02/08/21 Tamsulosin HCl [Flomax] 0.4 mg PO BID 02/08/21 metFORMIN HCL [Glucophage] 1,000 mg PO BID 02/08/21 Dulaglutide [Trulicity] 3 mg SQ Q7D 01/28/24 Ibuprofen [Motrin] 800 mg PO Q8H PRN 01/28/24 diazePAM [Valium] 5 mg PO DAILY PRN 1 Days #2 tab 02/20/24 Controlled Substance Measures - Controlled Substance Measures Is patient prescribed a controlled substance at discharge?: No
== END ==
LOC: PNWHC3 12:44
PROVIDERS: ATTEND Specialist
DX: M54.16 Radiculopathy, lumbar region (principal); Z87.891 Personal history of nicotine dependence
CPT/HCPCS: 99211

== ENCOUNTER 2024-04-08 11:35 | Day surgery (SDC) | payer OTHER ==
[2024-04-04 17:27] VITALS: BMI 37.4
[2024-04-08 12:31] VITALS: RESP 18; TEMP 97.9
[2024-04-08] MEDS: IV FLUID CONTINUATION 1,000 ML IV ONE ×2 (12:37→14:05)
[2024-04-08] MEDS: LACTATED RINGERS 1,000 ML IV SCH (12:37)
[2024-04-08 12:40] LABS: Glucose,Whole Blood 155 mg/dL (70-110)
[2024-04-08] MEDS ORDERED: MIDAZOLAM 2 MG/2 ML VIAL ONE (13:35)
[2024-04-08] MEDS ORDERED: ROPIVACAINE 5MG/ML 20ML VIAL ONE (13:35)
--- NOTE | 2024-04-08 14:02 | P.PCN ---
Description of Procedure: Preprocedure diagnosis. 1. Lumbar spondylosis with facet joint arthropathy without myelopathy. 2. Lumbar degenerative disc disease. Postprocedure diagnosis. As above. Procedure done. Bilateral diagnostic block with local anesthetics at L3, L4, L5 medial branch to target the facet joint L4- 5 and L5-S1 with fluoroscopic guidan ce (fluoroscopy images are available in the radiology department) . Anesthesia. Moderate sedation with intravenous Versed 2 mg and fentanyl and local infiltration with local anesthetics. In OR, continuous pulse ox, EKG, blood pressure and verbal communication was maintained. Time. Blood loss. Minimal. Indication. The patient has low back pain secondary to lumbar facet joint arthropathy. Discussed the procedure and alternative and complications which includes infection, bleeding, nerve damage, paralysis ,aggravation of pain. Patient understands and all questions were answered. Patient iunderstands that if any pain relief occurs it will last for a few hours to a few days maximum. Procedure description. After getting consent patient was taken in the OR in prone position. Back prepped with chlorhexidine and draped in sterile fashion. After injecting 5 mL of plain 1% lidocaine subcutaneously, a 22-gauge spinal needle was introduced under tunnel vision of the fluoroscope at the junction of the superior articular process with RIGHT ala of the sacrum. With slight oblique fluoroscope, after injecting 5 mL of plain 1% lidocaine subcutaneously, a 22-gauge spinal needle was introduced under tunnel vision of the fluoroscope at the junction of the superior articular process with RIGHT L5 transverse process, junction of the superior articular process with the RIGHT L4 transverse process. Negative CSF, negative blood, negative paresthesia. After needle position confirmation by AP and crosstable lateral view, after negative aspiration, half milliliters of solution were injected at each point. Total 1- 1/2 mL of solution was injected on the right side which consists of 0.5% ropivacaine. In exactly same way, LEFT sided injections were done at the following 3 points. Junction of the superior articular process with left ala of the sacrum, junction of the superior articular process with the left L5 transverse process, junction of the superior articular process with left L4 transverse process using 0.5 mL of solution at each point. Total 1-1/2 mL of solution was injected on the left side which consists of 0.5% ropivacaine . Spinal needles were taken out and bandages were applied. Disposition. Patient tolerated the procedure well. No complication. Discharged home in stable condition
[2024-04-08 14:23] VITALS: BP 103/67; PULSE 93
--- NOTE | 2024-04-08 14:53 | FL ---
EXAMINATION TYPE: FL guided pain mgmt statistic DATE OF EXAM: 04/08/2024 2:11 PM COMPARISON: Pre Operative Images if available both CT/MRI or plain film CLINICAL INDICATION: Male, 63 years old with history of FACET BLOCK LEANDRO LUM; TECHNIQUE: FL guided pain mgmt statistic, multiple fluoroscopic images provided for procedure. Total fluoroscopy time: 45.1 seconds Total submitted images to PACS: 4 DAP: [id number] mGym2 Gycm2 uGym2 cGycm2 or equivalent. FINDINGS: Fluoroscopic images during injection for pain management demonstrate multilevel degeneration changes throughout the spine. No evidence for fracture. No acute process identified. IMPRESSION: 1. No evidence for intraoperative complication. 2. Please see the operative/procedural note for further details. [facility], Workstation: [email or web address], 04/08/2024 2:51 PM
== END 2024-04-08 14:40 | disposition home or self-care (01) ==
LOC: ORPAIN 11:35
PROVIDERS: ATTEND Pain Medicine Interventional Pain Medicine
DX: M47.816 Spondylosis without myelopathy or radiculopathy, lumbar region (principal); M51.369 Other intervertebral disc degeneration, lumbar region without mention of lumbar back pain or lower extremity pain; Z79.82 Long term (current) use of aspirin; Z79.899 Other long term (current) drug therapy

== ENCOUNTER → 2024-05-05 | Outpatient (CLI) | payer OTHER ==
[2024-05-05 14:33] VITALS: BP 117/79; PULSE 96; RESP 19; TEMP 98
--- NOTE | 2024-05-05 17:20 | P.PAINPG ---
PQRS Measure Charge Sheet Comment: HISTORY OF PRESENT ILLNESS: A 63 yr old male presents today w severe and chronic LBP > 6 mo secondary to radiculopathy, spondylosis and facet arthropathy without myelopathy for evaluation s/p BL MBB L4-L5/ L5-S1 #1. Pt states he experienced 10 % pain relief x 24 hrs s/p procedure. Pt states pain level is provoked at 7 /10 in intensity, constant, localized in the L lumbar spine, predominantly axial, achy in character w occasional shooting pain down the LLE. Pain is provoked w weight bearing activity. Pain is alleviated by physician guided home exercises five times weekly since August 2023, ice, medications, topical, repositioning and rest . Interventional procedures include AARTI L5-S1 x1, L TFESI L5-S1 x2, BL MBB L4-L5/ L5-S1 x1 Medications include [place], Baclofen, Ibu, Icy-Hot REVIEW OF ORGAN SYSTEMS: CONSTITUTIONAL: No fevers or chills. No recent weight loss. NEUROLOGICAL: + numbness and tingling along the distal extremities. No seizure disorders or headaches. MUSCULOSKELETAL: + pain PSYCHIATRIC: Denies current depression or suicidal thoughts. Physical Examinations : Constitutional : Cooperative , not in acute distress . Neurologic : Cranial nerve II to XII intact. No focal neurological deficits. Psychiatric : alert & oriented x 3. Matching mood & appropriate affect. Judgment & insight intact. Musculoskeletal : Cervical Spine Motor strength in the deltoid and biceps: Normal right side. Normal Left side Motor strength biceps and the wrist extensors: Normal right side . Normal left side Motor strength in the triceps muscle: Normal right side. Normal left side Deep tendon reflexes: Normal at the biceps. Normal at Brachioradialis. Normal at triceps Vertebral body tenderness to deep palpation over Cervical facet loading test: positive bilaterally Spurling test: positive bilaterally Neck distraction test: positive bilaterally Lloyd sign: positive bilaterally Lumbar spine Motor strength lower extremities ,thigh and legs 5/5 Right side , 5/5 Left side Deep tendon reflexes : Normal Knee Jerk. Normal Ankle Jerk Vertebral body tenderness over L5 Corea Test positive L L5-S1 Lumbar facet Loading Test: positive Right < positive Left L4-L5/ L5-S1 Range of motion of the lumbar spine Flexion 30 degrees, extension 10 degrees Straight Leg Raise test: Left/ Right positive at degrees Marj test: positive right / positive left. Severe tenderness over the Sacroiliac joint on the Right / Left sides Gaenslen test: positive bilaterally Seated flexion test: positive bilaterally. Sacral spine : Severe tenderness over the Sacroiliac joint: right side / left side Range of motion: Flexion of the lumbar spine <60 degrees Range of motion: Extension of the lumbar spine <20 degrees Gaenslen's Test positive Marj test: positive right side / left side Thigh Thrust Test Sacral Thrust Test Imaging: CT non contrast of the lumbar spine from 11/16/23 reviewed Assessment/ Plan : Lumbar radiculopathy Recommendation of medication management. Neurontin 100mg #60, to titrate up, directions on Rx. Use, side effects, adverse reactions, safe storage discussed. Referred to Dr Hunt, contact information provided. All questions answered. I have spent greater than 30 minutes on patient care today. Dr Johnson was available by phone for the evaluation of this patient. The time was used to review the medical records including relevant urine studies and Prescription history (MAPs), review of the available imaging, evaluation and examination of the patient, coordination of care with the medical staff and if applicable referring physicians, as well as creation of the medical record - Pain Location Left Buttock Non-Pharmacological Interventions: Position/Reposition PQRS Narrative: Smoking Status Former smoker Hx Alcohol Use (MH) No Home Medications: Ambulatory Orders Aspirin 81 mg PO DAILY 06/08/14 glipiZIDE [Glucotrol] 5 mg PO HS 06/08/14 Fenofibrate [Tricor] 160 mg PO HS 03/12/15 Atorvastatin [Lipitor] 40 mg PO HS 02/08/21 Baclofen [Lioresal] 20 mg PO HS 02/08/21 Dapagliflozin Propanediol [Farxiga] 10 mg PO QAM 02/08/21 Famotidine 20 mg PO HS 02/08/21 Furosemide [Lasix] 20 mg PO QAM 02/08/21 HYDROcodone/APAP 10-325MG [[place] 10-325] 1 tab PO Q6HR PRN 02/08/21 Metoprolol Succinate (ER) [Toprol Xl] 25 mg PO QAM 02/08/21 Nitroglycerin Sl Tabs [Nitrostat] 0.4 mg SUBLINGUAL Q5M PRN 02/08/21 PARoxetine [Paxil] 20 mg PO QAM 02/08/21 Pioglitazone HCl 45 mg PO QAM 02/08/21 Sacubitril/Valsartan [Entresto 49 mg-51 mg Tablet] 1 each PO BID 02/08/21 Spironolactone 50 mg PO QAM 02/08/21 Tamsulosin HCl [Flomax] 0.4 mg PO BID 02/08/21 metFORMIN HCL [Glucophage] 1,000 mg PO BID 02/08/21 Dulaglutide [Trulicity] 3 mg SQ Q7D 01/28/24 Ibuprofen [Motrin] 800 mg PO Q8H PRN 01/28/24 Gabapentin [Neurontin] 100 mg PO BID 30 Days #60 cap 05/05/24 Controlled Substance Measures - Controlled Substance Measures Is patient prescribed a controlled substance at discharge?: No
== END ==
LOC: PNWHC3 14:02
PROVIDERS: ATTEND Specialist
DX: M54.16 Radiculopathy, lumbar region (principal); G89.29 Other chronic pain; Z87.891 Personal history of nicotine dependence
CPT/HCPCS: 99211

== ENCOUNTER → 2024-06-02 | Outpatient (CLI) | payer OTHER ==
[2024-06-02 14:09] VITALS: BP 105/53; PULSE 105; RESP 16; TEMP 95.5
--- NOTE | 2024-06-02 16:21 | P.PAINPG ---
PQRS Measure Charge Sheet Comment: HISTORY OF PRESENT ILLNESS: A 63 yr old male presents today w severe and chronic LBP > 6 mo secondary to radiculopathy, spondylosis and facet arthropathy without myelopathy for evaluation. Pt states pain level is provoked at 6 /10 in intensity, constant, localized in the L lumbar spine, predominantly axial, achy in character w occasional shooting pain down the LLE. Pain is provoked w weight bearing activity. Pain is alleviated by physician guided home exercises five times weekly since August 2023, ice, medications, topical, repositioning and rest . Pt doing well on Neurontin, states he is able to walk further, would like a stronger dose. No dizziness, fogginess or drowsiness. Interventional procedures include AARTI L5-S1 x1, L TFESI L5-S1 x2, BL MBB L4-L5/ L5-S1 x1 Medications include [place], Baclofen, Ibu, Icy-Hot, Neurontin 200gm #60 REVIEW OF ORGAN SYSTEMS: CONSTITUTIONAL: No fevers or chills. No recent weight loss. NEUROLOGICAL: + numbness and tingling along the distal extremities. No seizure disorders or headaches. MUSCULOSKELETAL: + pain PSYCHIATRIC: Denies current depression or suicidal thoughts. Physical Examinations : Constitutional : Cooperative , not in acute distress . Neurologic : Cranial nerve II to XII intact. No focal neurological deficits. Psychiatric : alert & oriented x 3. Matching mood & appropriate affect. Judgment & insight intact. Musculoskeletal : Cervical Spine Motor strength in the deltoid and biceps: Normal right side. Normal Left side Motor strength biceps and the wrist extensors: Normal right side . Normal left side Motor strength in the triceps muscle: Normal right side. Normal left side Deep tendon reflexes: Normal at the biceps. Normal at Brachioradialis. Normal at triceps Vertebral body tenderness to deep palpation over Cervical facet loading test: positive bilaterally Spurling test: positive bilaterally Neck distraction test: positive bilaterally Lloyd sign: positive bilaterally Lumbar spine Motor strength lower extremities ,thigh and legs 5/5 Right side , 5/5 Left side Deep tendon reflexes : Normal Knee Jerk. Normal Ankle Jerk Vertebral body tenderness over L5 Corea Test positive L L5-S1 Lumbar facet Loading Test: positive Right < positive Left L4-L5/ L5-S1 Range of motion of the lumbar spine Flexion 30 degrees, extension 10 degrees Straight Leg Raise test: Left/ Right positive at degrees Marj test: positive right / positive left. Severe tenderness over the Sacroiliac joint on the Right / Left sides Gaenslen test: positive bilaterally Seated flexion test: positive bilaterally. Sacral spine : Severe tenderness over the Sacroiliac joint: right side / left side Range of motion: Flexion of the lumbar spine <60 degrees Range of motion: Extension of the lumbar spine <20 degrees Gaenslen's Test positive Marj test: positive right side / left side Thigh Thrust Test Sacral Thrust Test Imaging: CT non contrast of the lumbar spine from 11/16/23 reviewed Assessment/ Plan : Lumbar radiculopathy Recommendation of medication management. Incr Neurontin 200mg #60, to titrate up, directions on Rx. Use, side effects, adverse reactions, safe storage discussed. All questions answered. I have spent greater than 30 minutes on patient care today. Dr Johnson was available by phone for the evaluation of this patient. The time was used to review the medical records including relevant urine studies and Prescription history (MAPs), review of the available imaging, evaluation and examination of the patient, coordination of care with the medical staff and if applicable referring physicians, as well as creation of the medical record PQRS Narrative: Smoking Status Former smoker Narcotic Agreement Date Signed 05/05/24 Hx Alcohol Use (MH) No Home Medications: Ambulatory Orders Aspirin 81 mg PO DAILY 06/08/14 glipiZIDE [Glucotrol] 5 mg PO HS 06/08/14 Fenofibrate [Tricor] 160 mg PO HS 03/12/15 Atorvastatin [Lipitor] 40 mg PO HS 02/08/21 Baclofen [Lioresal] 20 mg PO HS 02/08/21 Dapagliflozin Propanediol [Farxiga] 10 mg PO QAM 02/08/21 Famotidine 20 mg PO HS 02/08/21 Furosemide [Lasix] 20 mg PO QAM 02/08/21 HYDROcodone/APAP 10-325MG [[place] 10-325] 1 tab PO Q6HR PRN 02/08/21 Metoprolol Succinate (ER) [Toprol Xl] 25 mg PO QAM 02/08/21 Nitroglycerin Sl Tabs [Nitrostat] 0.4 mg SUBLINGUAL Q5M PRN 02/08/21 PARoxetine [Paxil] 20 mg PO QAM 02/08/21 Pioglitazone HCl 45 mg PO QAM 02/08/21 Sacubitril/Valsartan [Entresto 49 mg-51 mg Tablet] 1 each PO BID 02/08/21 Spironolactone 50 mg PO QAM 02/08/21 Tamsulosin HCl [Flomax] 0.4 mg PO BID 02/08/21 metFORMIN HCL [Glucophage] 1,000 mg PO BID 02/08/21 Dulaglutide [Trulicity] 3 mg SQ Q7D 01/28/24 Ibuprofen [Motrin] 800 mg PO Q8H PRN 01/28/24 Gabapentin [Neurontin] 200 mg PO BID 30 Days #60 cap 06/02/24 Controlled Substance Measures - Controlled Substance Measures Is patient prescribed a controlled substance at discharge?: No
== END ==
LOC: PNWHC3 13:43
PROVIDERS: ATTEND Specialist
DX: M54.16 Radiculopathy, lumbar region (principal); Z87.891 Personal history of nicotine dependence
CPT/HCPCS: 99211

== ENCOUNTER → 2024-08-04 | Outpatient (CLI) | payer OTHER ==
[2024-08-04 13:53] VITALS: BP 98/64; PULSE 94; RESP 17; TEMP 98.6
--- NOTE | 2024-08-04 15:53 | P.PAINPG ---
PQRS Measure Charge Sheet Comment: HISTORY OF PRESENT ILLNESS: A 63 yr old male presents today w severe and chronic LBP > 6 mo secondary to radiculopathy, spondylosis and facet arthropathy without myelopathy for evaluation. Pt states pain level is provoked at 6 /10 in intensity, constant, localized in the L lumbar spine, predominantly axial, achy in character w occasional shooting pain down the LLE. Pain is provoked w weight bearing activity. Pain is alleviated by physician guided home exercises five times weekly since August 2023, ice, medications, topical, repositioning and rest . Interventional procedures include AARTI L5-S1 x1, L TFESI L5-S1 x2, BL MBB L4-L5/ L5-S1 x1 Medications include [place], Baclofen, Ibu, Icy-Hot, Neurontin 200gm #60 REVIEW OF ORGAN SYSTEMS: CONSTITUTIONAL: No fevers or chills. No recent weight loss. NEUROLOGICAL: + numbness and tingling along the distal extremities. No seizure disorders or headaches. MUSCULOSKELETAL: + pain PSYCHIATRIC: Denies current depression or suicidal thoughts. Physical Examinations : Constitutional : Cooperative , not in acute distress . Neurologic : Cranial nerve II to XII intact. No focal neurological deficits. Psychiatric : alert & oriented x 3. Matching mood & appropriate affect. Judgment & insight intact. Musculoskeletal : Cervical Spine Motor strength in the deltoid and biceps: Normal right side. Normal Left side Motor strength biceps and the wrist extensors: Normal right side . Normal left side Motor strength in the triceps muscle: Normal right side. Normal left side Deep tendon reflexes: Normal at the biceps. Normal at Brachioradialis. Normal at triceps Vertebral body tenderness to deep palpation over Cervical facet loading test: positive bilaterally Spurling test: positive bilaterally Neck distraction test: positive bilaterally Lloyd sign: positive bilaterally Lumbar spine Motor strength lower extremities ,thigh and legs 5/5 Right side , 5/5 Left side Deep tendon reflexes : Normal Knee Jerk. Normal Ankle Jerk Vertebral body tenderness over L5 Corea Test positive L L5-S1 Lumbar facet Loading Test: positive Right < positive Left L4-L5/ L5-S1 Range of motion of the lumbar spine Flexion 30 degrees, extension 10 degrees Straight Leg Raise test: Left/ Right positive at degrees Marj test: positive right / positive left. Severe tenderness over the Sacroiliac joint on the Right / Left sides Gaenslen test: positive bilaterally Seated flexion test: positive bilaterally. Sacral spine : Severe tenderness over the Sacroiliac joint: right side / left side Range of motion: Flexion of the lumbar spine <60 degrees Range of motion: Extension of the lumbar spine <20 degrees Gaenslen's Test positive Marj test: positive right side / left side Thigh Thrust Test Sacral Thrust Test Imaging: CT non contrast of the lumbar spine from 11/16/23 reviewed Assessment/ Plan : Lumbar radiculopathy Recommendation of PT x 6 wks M54.16 and medication management. Incr Neurontin 200mg #90, to titrate up, directions on Rx. Use, side effects, adverse reactions, safe storage discussed. All questions answered. I have spent greater than 30 minutes on patient care today. Dr Johnson was available by phone for the evaluation of this patient. The time was used to review the medical records including relevant urine studies and Prescription history (MAPs), review of the available imaging, evaluation and examination of the patient, coordination of care with the medical staff and if applicable referring physicians, as well as creation of the medical record PQRS Narrative: Smoking Status Former smoker Narcotic Agreement Date Signed 05/05/24 Hx Alcohol Use (MH) No Home Medications: Ambulatory Orders Aspirin 81 mg PO DAILY 06/08/14 glipiZIDE [Glucotrol] 5 mg PO HS 06/08/14 Fenofibrate [Tricor] 160 mg PO HS 03/12/15 Atorvastatin [Lipitor] 40 mg PO HS 02/08/21 Baclofen [Lioresal] 20 mg PO HS 02/08/21 Dapagliflozin Propanediol [Farxiga] 10 mg PO QAM 02/08/21 Famotidine 20 mg PO HS 02/08/21 Furosemide [Lasix] 20 mg PO QAM 02/08/21 HYDROcodone/APAP 10-325MG [[place] 10-325] 1 tab PO Q6HR PRN 02/08/21 Metoprolol Succinate (ER) [Toprol Xl] 25 mg PO QAM 02/08/21 Nitroglycerin Sl Tabs [Nitrostat] 0.4 mg SUBLINGUAL Q5M PRN 02/08/21 PARoxetine [Paxil] 20 mg PO QAM 02/08/21 Pioglitazone HCl 45 mg PO QAM 02/08/21 Sacubitril/Valsartan [Entresto 49 mg-51 mg Tablet] 1 each PO BID 02/08/21 Spironolactone 50 mg PO QAM 02/08/21 Tamsulosin HCl [Flomax] 0.4 mg PO BID 02/08/21 metFORMIN HCL [Glucophage] 1,000 mg PO BID 02/08/21 Dulaglutide [Trulicity] 3 mg SQ Q7D 01/28/24 Ibuprofen [Motrin] 800 mg PO Q8H PRN 01/28/24 Gabapentin [Neurontin] 200 mg PO BID 30 Days #60 cap 06/30/24 Controlled Substance Measures - Controlled Substance Measures Is patient prescribed a controlled substance at discharge?: No
== END ==
LOC: PNWHC3 13:34
PROVIDERS: ATTEND Specialist
DX: M47.26 Other spondylosis with radiculopathy, lumbar region (principal); Z87.891 Personal history of nicotine dependence
CPT/HCPCS: 99212

== ENCOUNTER → 2024-10-02 | Outpatient (CLI) | payer OTHER ==
[2024-10-02 13:24] VITALS: BP 112/77; PULSE 98; RESP 19
--- NOTE | 2024-10-06 14:26 | P.PAINPG ---
PQRS Measure Charge Sheet Comment: HISTORY OF PRESENT ILLNESS: A 64 yr old male presents today w severe and chronic LBP > 6 mo secondary to radiculopathy, spondylosis and facet arthropathy without myelopathy for evaluation. Pt states pain level is provoked at 6 /10 in intensity, constant, localized in the L lumbar spine, predominantly axial, achy in character w occasional shooting pain down the LLE. Pain is provoked w weight bearing activity. Pain is alleviated by physician guided home exercises five times weekly since August 2023, ice, medications, topical, repositioning and rest . Interventional procedures include AARTI L5-S1 x1, L TFESI L5-S1 x2, BL MBB L4-L5/ L5-S1 x1 Medications include Britt, Baclofen, Ibu, Icy-Hot, Neurontin 200gm TID REVIEW OF ORGAN SYSTEMS: CONSTITUTIONAL: No fevers or chills. No recent weight loss. NEUROLOGICAL: + numbness and tingling along the distal extremities. No seizure disorders or headaches. MUSCULOSKELETAL: + pain PSYCHIATRIC: Denies current depression or suicidal thoughts. Physical Examinations : Constitutional : Cooperative , not in acute distress . Neurologic : Cranial nerve II to XII intact. No focal neurological deficits. Psychiatric : alert & oriented x 3. Matching mood & appropriate affect. Judgment & insight intact. Musculoskeletal : Cervical Spine Motor strength in the deltoid and biceps: Normal right side. Normal Left side Motor strength biceps and the wrist extensors: Normal right side . Normal left side Motor strength in the triceps muscle: Normal right side. Normal left side Deep tendon reflexes: Normal at the biceps. Normal at Brachioradialis. Normal at triceps Vertebral body tenderness to deep palpation over Cervical facet loading test: positive bilaterally Spurling test: positive bilaterally Neck distraction test: positive bilaterally Lloyd sign: positive bilaterally Lumbar spine Motor strength lower extremities ,thigh and legs 5/5 Right side , 5/5 Left side Deep tendon reflexes : Normal Knee Jerk. Normal Ankle Jerk Vertebral body tenderness over L5 Corea Test positive L L5-S1 Lumbar facet Loading Test: positive Right < positive Left L4-L5/ L5-S1 Range of motion of the lumbar spine Flexion 30 degrees, extension 10 degrees Straight Leg Raise test: Left/ Right positive at degrees Marj test: positive right / positive left. Severe tenderness over the Sacroiliac joint on the Right / Left sides Gaenslen test: positive bilaterally Seated flexion test: positive bilaterally. Sacral spine : Severe tenderness over the Sacroiliac joint: right side / left side Range of motion: Flexion of the lumbar spine <60 degrees Range of motion: Extension of the lumbar spine <20 degrees Gaenslen's Test positive Marj test: positive right side / left side Thigh Thrust Test Sacral Thrust Test Imaging: CT non contrast of the lumbar spine from 11/16/23 reviewed Assessment/ Plan : Lumbar radiculopathy Recommendation of medication management. Neurontin 200mg #270 NR. Use, side effects, adverse reactions, safe storage discussed. All questions answered. I have spent greater than 30 minutes on patient care today. Dr Johnson was available by phone for the evaluation of this patient. The time was used to review the medical records including relevant urine studies and Prescription history (MAPs), review of the available imaging, evaluation and examination of the patient, coordination of care with the medical staff and if applicable referring physicians, as well as creation of the medical record - Pain Location Lower Back Pharmacological Interventions: Medication PQRS Narrative: Smoking Status Former smoker Narcotic Agreement Date Signed 05/05/24 Hx Alcohol Use (MH) No Home Medications: Ambulatory Orders Aspirin 81 mg PO DAILY 06/08/14 glipiZIDE [Glucotrol] 5 mg PO HS 06/08/14 Fenofibrate [Tricor] 160 mg PO HS 03/12/15 Atorvastatin [Lipitor] 40 mg PO HS 02/08/21 Baclofen [Lioresal] 20 mg PO HS 02/08/21 Dapagliflozin Propanediol [Farxiga] 10 mg PO QAM 02/08/21 Famotidine 20 mg PO HS 02/08/21 Furosemide [Lasix] 20 mg PO QAM 02/08/21 HYDROcodone/APAP 10-325MG [Britt 10-325] 1 tab PO Q6HR PRN 02/08/21 Metoprolol Succinate (ER) [Toprol Xl] 25 mg PO QAM 02/08/21 Nitroglycerin Sl Tabs [Nitrostat] 0.4 mg SUBLINGUAL Q5M PRN 02/08/21 PARoxetine [Paxil] 20 mg PO QAM 02/08/21 Pioglitazone HCl 45 mg PO QAM 02/08/21 Sacubitril/Valsartan [Entresto 49 mg-51 mg Tablet] 1 each PO BID 02/08/21 Spironolactone 50 mg PO QAM 02/08/21 Tamsulosin HCl [Flomax] 0.4 mg PO BID 02/08/21 metFORMIN HCL [Glucophage] 1,000 mg PO BID 02/08/21 Dulaglutide [Trulicity] 3 mg SQ Q7D 01/28/24 Ibuprofen [Motrin] 800 mg PO Q8H PRN 01/28/24 Gabapentin [Neurontin] 200 mg PO TID 90 Days #270 cap 10/02/24 Controlled Substance Measures - Controlled Substance Measures Is patient prescribed a controlled substance at discharge?: No
== END ==
LOC: PNWHC3 13:11
PROVIDERS: ATTEND Specialist
DX: M47.26 Other spondylosis with radiculopathy, lumbar region (principal); Z87.891 Personal history of nicotine dependence
CPT/HCPCS: 99212